=== PATIENT | male | born 1975 | race Caucasian/White ===

== ENCOUNTER 2024-02-10 21:56 | Emergency (ER) | payer OTHER ==
[~2024-02-10] VITALS: Ht 182.9 cm; Wt 102.1 kg
[2024-02-10 21:59] VITALS: BP 182/100; PULSE 109; RESP 16; TEMP 97.4; O2SAT 98
[2024-02-11] MEDS: MORPHINE SULFATE 4 MG/ML SYR IM ONE (02:28)
[2024-02-11] MEDS: methocarbamoL 500 MG TAB PO ONE (02:36)
[2024-02-11] MEDS: LIDOCAINE 5% 1 EA PATCH TP ONE (02:37)
[2024-02-11] MEDS ORDERED: LID5T TP (02:47)
[2024-02-11] MEDS ORDERED: METH-1681 PO (02:47)
[2024-02-11] MEDS ORDERED: BEN10 PO (02:47)
[2024-02-11] MEDS ORDERED: NAPR-54 PO (02:47)
== END 2024-02-11 03:05 | disposition home or self-care (01) ==
LOC: MED 21:56
DX: M54.50 Low back pain, unspecified (principal); Z79.899 Other long term (current) drug therapy
CPT/HCPCS: 96372; 99283; J2270